=== PATIENT | male | born 1965 | race Caucasian/White ===

== ENCOUNTER 2020-02-16 22:42 | Emergency (ER) | payer OTHER, SELFPAY ==
[2020-02-16 22:46] VITALS: BP 117/76; PULSE 72; RESP 20; TEMP 37.1; O2SAT 100
--- NOTE | 2020-02-17 00:49 | ED.WOUNDLAC ---
HPI - Wound/Laceration General Chief Complaint: Wound/Laceration Stated Complaint: L middle finger infection? Time Seen by Provider: 02/17/20 00:49 History of Present Illness HPI narrative: He had a finger laceration sutured about 5 days ago. He was placed on prophylactic antibiotics at that time. He only took them for 2 days before they were damaged by water and he was not able to finish. Today he noted that the wound seemed to be more red and swollen than it had been. At the time of my evaluation he say that the swelling has decreased. He has mild discomfort. No fever or other systemic symptoms. Related Data Allergies Allergy/AdvReac Type Severity Reaction Status Date / Time mold Allergy Unknown Verified 05/17/17 00:37 Review of Systems Review of Systems: All systems reviewed & are unremarkable except as noted in HPI and below PMFSH Family History Family History Mother Family history of diabetes mellitus in first degree relative Family history of colonic diverticulitis Grandparent Family history of colonic diverticulitis Diabetes mellitus Social History Social History Alcohol intake: current Exam Const: General: healthy appearing, no acute distress and alert Orientation/consciousness: patient oriented x3 HENMT: Head: normal to inspection Cardio: Rate: regular rate Rhythm: regular rhythm Other: Brisk cappillary refill to left third finger Skin: Other: Healing laceration to left third finger. Mild redness Neuro: General: patient oriented x3, moves all extremities and no focal motor deficits Speech: normal speech Extrem: Other: Mild swelling to distal left third finger Psych: Appearance: grossly normal and well kempt Mental Status: mental status grossly normal Affect: normal affect Attitude: cooperative Course Vital Signs Vital signs: Vital Signs Temperature 37.1 C 02/16/20 22:46 Pulse Rate 72 02/16/20 22:46 Respiratory Rate 20 02/16/20 22:46 Blood Pressure 117/76 02/16/20 22:46 Pulse Oximetry 100 02/16/20 22:46 Temperature 36.6 C 02/17/20 01:41 Pulse Rate 78 02/17/20 01:41 Respiratory Rate 16 02/17/20 01:41 Blood Pressure 119/68 02/17/20 01:41 Pulse Oximetry 98 02/17/20 01:41 MDM - Wound/Laceration MDM Narrative Medical decision making narrative: Mild swelling and redness to left third finger. Could be within normal limits for healing. I will represcribe antibiotics. I believe that the sutures can stay in since there are no clear signs of infection at this time. Discharge Plan Discharge Clinical Impression: Laceration Patient Disposition: Home, Self-Care Condition: Stable Instructions: Antibiotic Form, Laceration (ED) Prescriptions: New cephalexin [Keflex] 500 mg capsule 500 mg PO Q8H Qty: 15 RF: 0 Follow-up/Referrals: UNKNOWN,DOCTOR [Primary Care Provider] - Discharge Date/Time: 02/17/20 01:42
[2020-02-17 01:41] VITALS: BP 119/68; PULSE 78; RESP 16; TEMP 36.6; O2SAT 98
[2020-02-17] MEDS: CEPHALEXIN 500 MG CAPSULE PO (01:41)
== END 2020-02-17 01:42 | disposition home or self-care (01) ==
PROVIDERS: Emergency Provider Emergency Medicine
DX: S61.213D Laceration without foreign body of left middle finger without damage to nail, subsequent encounter (principal); X58.XXXD Exposure to other specified factors, subsequent encounter
CPT/HCPCS: 99283; A9270

== ENCOUNTER 2020-04-09 16:31 | Outpatient (CLI) | payer OTHER, SELFPAY ==
--- NOTE | ~2020-04-09 | XR_ITS ---
EXAMINATION: XR pelvis 1-2V DATE: 04/09/2020 16:52 INDICATION: Pelvis injury and pain. TECHNIQUE: An anteroposterior view of the pelvis was obtained. COMPARISON: None. FINDINGS: Bone alignment is normal. No fracture. There is mild lumbar spondylosis. There is mild oste oarthritis of the hips. Partially visualized is heterotopic ossification in medial right thigh. IMPRESSION: 1. Mild osteoarthritis of the hips. Reviewed, dictated and finalized at location A. ERTIBLE POWER SHOVEL OPERATOR
== END 2020-04-09 16:32 | disposition home or self-care (01) ==
LOC: ANHIMG 16:39
PROVIDERS: PCP Internal Medicine Gastroenterology; Visit Provider Internal Medicine Gastroenterology
DX: S39.93XA Unspecified injury of pelvis, initial encounter (principal); X58.XXXA Exposure to other specified factors, initial encounter; M16.0 Bilateral primary osteoarthritis of hip
CPT/HCPCS: 72170

== ENCOUNTER 2022-11-20 21:37 | Emergency (ER) | payer BC, SELFPAY ==
--- NOTE | ~2022-11-20 | CT_ITS ---
Noncontrast CT scan of the lumbar spine CLINICAL HISTORY: Back pain radiating to lower extremities TECHNIQUE: Axial noncontrast imaging of the lumbar spine was performed. Sagittal and coronal reformat sanam images were constructed. Dose reduction technique was used on this scan by utilizing automated ex posure control and iterative reconstruction technique. The dose-length product (DLP) was 656.02 mGy-c m. FINDINGS: No fracture or subluxation identified in the lumbar spine. Vertebral bodies maintain normal height and alignment. There are extensive anterior osteophytes from L1 through L4. There are mild degenerative changes at L1-L2, L2-L3, L3-L4. At L1-L2, there is no disc bulge or herniation. No spinal canal stenosis or definite neural foraminal narrowing. At L2-L3, there is minimal disc bulge with mild to moderate facet arthropathy. No sima central canal stenosis identified. Probable mild right neural foraminal narrowing. At L3-L4, there is minimal disc bulge and mild facet arthropathy. No central canal stenosis or neural foraminal narrowing. At L4-L5, there is minimal disc bulge with moderate to advanced facet arthropathy. Possible minimal c entral canal stenosis. No definite neural foraminal narrowing. L5-S1, there is no disc bulge or herniation. No spinal canal stenosis. There is no definite neural fo raminal narrowing. Paravertebral soft tissues are unremarkable. Impression: Minimal degenerative spondylosis. No fracture or subluxation. Reviewed, dictated and finalized at [facility]. Impression: Minimal degenerative spondylosis. No fracture or subluxation.
[2022-11-20 21:51] VITALS: BP 116/71; PULSE 85; RESP 16; TEMP 36.9; O2SAT 100
[2022-11-20 23:02] VITALS: BP 123/77; PULSE 73; RESP 14; TEMP 36.6; O2SAT 100
[2022-11-20] MEDS: CYCLOBENZAPRINE HCL 5 MG TABLET PO (23:41)
[2022-11-21 00:48] VITALS: BP 114/68; PULSE 79; RESP 15; O2SAT 98
--- NOTE | 2022-11-21 01:22 | ED.BACK ---
HPI - Back Pain/Injury General Chief Complaint: Back Pain/Injury Stated Complaint: bilat leg pain, low back Time Seen by Provider: 11/20/22 23:07 Source: patient Mode of arrival: ambulatory Limitations: no limitations History of Present Illness HPI Narrative: Patient is a 57-year-old male who presents ED with report of muscle spasms in his lower back and upper thighs. Patient reports having pain and spasms in his bilateral upper posterior thighs/hamstrings and across his lower back for the past several days. Pain worse with movements, walking, coughing. He feels fine when he is laying still. Patient does report that he was recently hospitalized at [facility] after a traumatic head injury from a tree falling on him. He did not have any injury to his back at that time. He did not have imaging performed on his back at that time. He denies any injury since then but does note he has been sitting/laying frequently. Denies numbness, tingling, weakness of lower extremities, saddle anesthesia, incontinence of bowel or bladder. Denies any lower leg pain, calf pain, swelling of lower extremities. Denies abdominal pain, nausea, vomiting, fevers. Patient took Tylenol prior to arrival and does report some improvement of the pain. Related Data Allergies Allergy/AdvReac Type Severity Reaction Status Date / Time mold Allergy Unknown Verified 05/17/17 00:37 Review of Systems Review of Systems: CONSTITUTIONAL: Denies fever, chills, or sweats. CARDIOVASCULAR: Denies chest pain. RESPIRATORY: Denies dyspnea. GASTROINTESTINAL: Denies abdominal pain, nausea, vomiting, or diarrhea. GENITOURINARY: Denies incontinence, dysuria or hematuria. MUSCULOSKELETAL: See HPI. NEUROLOGIC: Denies tingling, saddle anesthesia, numbness, or weakness. All systems reviewed & are unremarkable except as noted in HPI and below PMFSH Family History Family History Mother Family history of diabetes mellitus in first degree relative Family history of colonic diverticulitis Grandparent Family history of colonic diverticulitis Diabetes mellitus Social History Social History Alcohol intake: current Exam Narrative: GENERAL: Well appearing, well-nourished, non-toxic, in no acute distress. HEAD: Normocephalic, atraumatic. Healing laceration with stitches in place to forehead. EENT: PERRLA/EOMI, conjunctiva clear. Old ecchymoses noted to nasal bridge and bilateral periorbital regions. NECK: Supple. No adenopathy, no masses. RESPIRATORY: Airway patent, respirations nonlabored. Clear to auscultation bilaterally, no rales, rhonchi, wheezing. CARDIOVASCULAR: Regular rate and rhythm without murmurs, rubs, or gallops. Peripheral pulses 2+ and equal bilaterally. MUSCULOSKELETAL: Moves all extremities. Strength/ROM intact without gross deformities. Full flexion/extension at hips bilaterally. No significant midline lumbar spinal tenderness. No bony deformities or palpable step-offs. No crepitus. Bilateral lumbar paraspinal musculature tenderness, worse on R side, reproducing pain. No appreciable tenderness in posterior thighs bilaterally. Sensation intact. No edema. SKIN: Warm, dry, normal color. No rashes. NEURO: A&O X3. Speech clear. Cranial nerves II-XII grossly intact. Steady gait. No ataxic movements. PSYCHIATRIC: Appropriate mood and affect. Normal interaction. Course Vital Signs Vital signs: Vital Signs Temperature 98.5 F 11/20/22 21:51 Pulse Rate 85 11/20/22 21:51 Respiratory Rate 16 11/20/22 21:51 Blood Pressure 116/71 11/20/22 21:51 Pulse Oximetry 100 11/20/22 21:51 Oxygen Delivery Room Air 11/20/22 21:51 Temperature 97.9 F 11/21/22 02:17 Pulse Rate 85 11/21/22 02:17 Respiratory Rate 14 11/21/22 02:17 Blood Pressure 129/70 11/21/22 02:17 Pulse Oximetry 98 11/21/22 02:17 Oxygen Delivery Room A
[2022-11-21 01:35] VITALS: BP 107/72; PULSE 74; RESP 13; O2SAT 99
[2022-11-21 02:17] VITALS: BP 129/70; PULSE 85; RESP 14; TEMP 36.6; O2SAT 98
== END 2022-11-21 02:18 | disposition home or self-care (01) ==
PROVIDERS: Emergency Provider Physician Assistant; PCP Physician Assistant
DX: M47.26 Other spondylosis with radiculopathy, lumbar region (principal); M62.830 Muscle spasm of back
CPT/HCPCS: 72131; 99284; A9270

== ENCOUNTER 2025-05-01 23:22 | Emergency (ER) | payer BC, SELFPAY ==
--- NOTE | ~2025-05-01 | XR_ITS ---
Examination: XR chest 1V portable Clinical History: productive cough Comparison: None Technique: Portable AP Findings: Heart size normal. Lungs clear. No acute bony abnormality. IMPRESSION: 1. No acute cardiopulmonary findings given portable technique. Reviewed, dictated and finalized at location R. D SERGEANT
--- OUTSIDE RECORDS SUMMARY | 2025-05-01 23:25 | XMS_ITS ---
Author Organization [facility] Address [address] [place] [address] Phone Care Team Providers Care Material Requisitioner Name Role Phone Yolanda Reyes APRN, SOM Primary Care Provider [phone] Vinh Vaughn MD Unavailable [phone] Ranjana Bhandari MD Unavailable [phone] [facility] Status:Identified (Enrolling) Start date:10/16/2024 Related program episode:[facility] (Active) Continued Care and Services Coordination
--- OUTSIDE RECORDS SUMMARY | 2025-05-01 23:25 | XMS_ITS ---
Author Organization [facility] Address [address] [place] [address] Phone Care Team Providers Care Graphic Production Artist Name Role Phone Yolanda Reyes APRN, SOM Primary Care Provider [phone] Vinh Vaughn MD Unavailable [phone] Ranjana Bhandari MD Unavailable [phone] [facility] Status:Enrolled (Active) Start date:10/16/2024 Enrollment date:10/16/2024 Related social drivers of health:Intimate Partner Violence, Social Connections, Alcohol Use, Financial Resource Strain, Depression, Stress, Physical Activity, Food Insecurity, Transportation Needs, Housing Stability, Utilities Related service episodes:Ed [facility] Service Episode (Enrolling) Continued Care and Services Coordination
--- OUTSIDE RECORDS SUMMARY | 2025-05-01 23:25 | XMS_ITS | Encounter Summary ---
Author Organization [facility] Address [address] [place] [address] Care Team Providers Care Statistical Methods Teacher Name Role Phone Tanmay Breen MD Primary Care Provider [phone] Encounter Details Date Type Department Care Team (Late st Contact Info) Description 11/11/2022 Ophth Exam [facility] - Ophthalmology [address] [place] [phone] Aryan Jorgensen MD [address] [place] [address] [place] [address] Social History Tobacco Use Types Packs/Day Years Used Date Smoking Tobacco: Never Smokeless Tobacco: Never Alcohol Use Standard Drinks/Week Comments Yes 0 (1 standard drink = 0.6 oz pur e alcohol) occass AUDIT-C Answer Date Recorded Q1: How often do you have a drink containing alcohol? Monthly or less 11/11/2022 Q2: How many drinks containi ng alcohol do you have on a typical day when you are drinking? Patient does not drink Q3: How often do you have si x or more drinks on one occasion? Never 11/11/2022 Overall Financial Resource Strain (CARDIA) Answe r Date Recorded How hard is it for you to pa y for the very basics like food, housing, medical care, and heating? Not hard at all 11/11/2022 [facility] [place] of Occupat ional Health - Occupational Stress Questionnaire Answer Date Recorded Do you feel stress - tense, restless, nervous, or anxious, or unable to sleep at night because your mind is troubled all the time - these days? Only a little 11/11/2022 Hunger Vital Sign Answer Date Recorded Within the past 12 months, y ou worried that your food would run out before you got the money to buy more. Sometimes true Within the past 12 months, t he food you bought just didn't last and you didn't have money to get more. Sometimes true 03/2023 PRAPARE - Transportation Answer Date Re corded In the past 12 months, has l ack of transportation kept you from medical appointments or from getting medications? No 11/02 In the past 12 months, has l ack of transportation kept you from meetings, work, or from getting things needed for daily living? No 11/11/2022 Housing Stability Vital Sign Answer Luis e Recorded In the last 12 months, was t here a time when you were not able to pay the mortgage or rent on time? No 11/11/2022 In the last 12 months, how many places have you lived? 1 11/11/2022 In the last 12 months, was t here a time when you did not have a steady place to sleep or slept in a skilled nursing (including now)? Yes 11/11/2022 Education Answer Date Recorded What is the highest level of school you have completed or the highest degree you have received? Bachelor's degree (e.g., BA, AB, BS) 11/11/2022 Sex and Gender Information Value Date Recorded Sex Assigned at Not on file Legal Sex Male 9:36 AM CDT Gender Identity Not on file Sexual Orientation Not on file documented as of this encounter Functional Status * Functional and Cognitive Status Question Answer Date of Assessment Author Is person deaf or have corine us hearing difficulty? No 11/11/2022 5:51 PM CDT Gus Oliveira R N Is person blind or have seri ous difficulty seeing? No 11/11/2022 5:51 PM CDT Gus Oliveira R N Does person have serious dif ficulty walking/climbing stairs? No 11/11/2022 5:51 PM CDT Ezio Oliveira, RN Does person have difficulty dressing/bathing? No 11/11/2022 5:51 PM CDT Gus Oliveira R N Does person have difficulty doing errands alone? No 11/11/2022 5:51 PM Gus Mcbride R N Does person have difficulty concentrating/remembering/making decisions? No 11/11/2022 5:51 PM Gus Mcbride R N * Question Answer Date of Assessment Author Q1: How often do you have a drink containing alcohol? Monthly or less 11/11/2022 5:50 PM Gus Mcbride R N Q2: How many drinks containing alcohol do you have on a typical day when you are drinking? Patient does not drink 11/11/2022 5:50 PM Gus Mcbride RN Q3: How often do you have six or more drinks on one occasion? Never 11/11/2022 5:50 PM Gus Mcbride R N * AUDIT-C Score Answer Date of Assessment Author 1 11/11/2022 5:50 PM Gus Mcbride RN * Is person deaf or have serious hearing difficulty? Answer Date of Assessment Author No 11/11/2022 5:51 PM Gus Mcbride RN * Is person blind or have serious difficulty seeing? Answer Date of Assessment Author No 11/11/2022 5:51 PM Gus Mcbride RN * Does person have serious difficulty walking/climbing stairs? Answer Date of Assessment Author No 11/11/2022 5:51 PM Gus Mcbride RN * Does person have difficulty dressing/bathing? Answer Date of Assessment Author No 11/11/2022 5:51 PM Gus Mcbride RN * Does person have difficulty doing errands alone? Answer Date of Assessment Author No 11/11/2022 5:51 PM Gus Mcbride RN documented as of this encounter Mental Status * Does person have difficulty concentrating/remembering/making decisions? Answer Entry Date Author No 11/11/2022 5:51 PM Gus Mcbride RN documented in this encounter Plan of Treatment Not on file documented as of this encounter Visit Diagnoses Not on filedocumented in this encounter Care Teams Statistical Methods Teacher Relationship Specialty Start Date End Date Tanmay Breen MD [address] [place] [id number] PCP - General Internal Medicine 09/22/14 02/27/23 documented as of this encounter
--- OUTSIDE RECORDS SUMMARY | 2025-05-01 23:25 | XMS_ITS | Encounter Summary ---
Author Organization [facility] Address [address] [place] [address] Care Team Providers Care Hat Stock Laminating Machine Operator Name Role Phone Tanmay Breen MD Primary Care Provider [phone] Encounter Details Date Type Department Care Team (Late st Contact Info) Description 11/11/2022 Ophth Exam [facility] - Ophthalmology [address] [place] [address] Shirley Wilson DO [address] [place] [address] Social History Tobacco Use Types Packs/Day Years [...] and heating? Not hard at all 11/11/2022 [employer] [place] of Occupat ional Health - Occupational Stress [...] place to sleep or slept in a alf (including now)? Yes 11/11/2022 Education Answer Date [...] doing errands alone? No 11/11/2022 5:51 PM CDT Gus Oliveira R N Does person have difficulty concentrating/remembering/making decisions? No 11/11/2022 5:51 PM PATRICIAT Gus Oliveira R N * Question Answer Date of Assessment Author Q1: How often do you have a drink containing alcohol? Monthly or less 11/11/2022 5:50 PM Gus Mcbride R N Q2: How many drinks containing alcohol do you have on a typical day when you are drinking? Patient does not drink 11/11/2022 5:50 PM PATRICIAT Gus Oliveira RN Q3: How often do you have [...] on filedocumented in this encounter Care Teams Hat Stock Laminating Machine Operator Relationship Specialty Start Date End Date Tanmay Breen MD [address] [place] [id number] PCP - General Internal Medicine 09/22/14 02/27/23 documented as of this encounter
--- OUTSIDE RECORDS SUMMARY | 2025-05-01 23:25 | XMS_ITS | Clinical Summary ---
Author Organization [facility] Address [address] [place] [address] Phone Care Team Providers Care Paper And Prints Restorer Name Role Phone Yolanda Reyes APRN, FIGURE MODEL Primary Care Provider [phone] Vinh Vaughn MD Unavailable [phone] Ranjana Bhandari MD Unavailable [phone] Allergies No known active allergies Medications montelukast (SINGULAIR) 10 MG Tablet Take 10 mg by mouth every evening. Active Active Problems No known active problems Social History Tobacco Use Types Packs/Day Years Used Date Smoking Tobacco: Never Smokeless Tobacco: Never Tobacco Cessation:Counseling Given: No Alcohol Use Standard Drinks/Week Comments Not Currently 0 (1 standard drink = 0.6 oz pur e alcohol) Sex and Gender Information Value Date Recorded Sex Assigned at Not on file Legal Sex Male 11:37 PM CDT Gender Identity Not on file Sexual Orientation Not on file Last Filed Vital Signs Vital Sign Reading Time Taken Comments Blood Pressure 120/70 12/30/2024 2:35 PM CDT Pulse 72 12/30/2024 2:35 PM CDT Temperature 36.4 C (97.5 F) 12/30/2024 2:35 PM CDT Respiratory Rate 14 12/30/2024 2:35 PM CDT Oxygen Saturation 97% 12/30/2024 2:35 PM CDT Inhaled Oxygen Concentration - - Weight 83.1 kg (183 lb 3.2 oz) 12/30/2024 2:35 P M CDT Height 188 cm (6' 2) 12/30/2024 2:35 PM CDT Body Mass Index 23.52 12/30/2024 2:35 PM CDT Plan of Treatment Upcoming Encounters Date Type Department Care Team (Late st Contact Info) Description 2025 3:00 PM CERAMICS TEACHER Office Visit [facility] - [place] [address] [place] [phone] Vinh Vaughn MD [address] [place] [address] 07/09/2025 2:45 PM CERAMICS TEACHER Office Visit [facility] - Ear, Nose & Throat - [place] [address] [facility] [place] [address] Ranjana Bhandari MD [address] [facility] [address] [address] Health Maintenance Due Date Last Done Comments Hepatitis C Virus (HCV) Screening 1965 Cologuard 2010 Colonoscopy 2010 Colorectal Cancer Screening 2010 Immunochemical Fecal Occult Blood 2010 Zoster Immunization (2 of 2) 10/15/2019 08/20/2019 PSA Discussion 2020 Pneumococcal Immunization (5 0+ years) (2 of 2 - PCV) 08/25/2020 08/26/2019 Influenza Immunization (#1) 2025 12/0 08/2021, 01/31/2016 SARS-COV-2 Immunization (4 - season) 2025 06/03/2021, 10/07/2020, 09/16/2020 Respiratory Syncytial Virus (RSV) Immunization (Adult) (1 - 1-dose 75+ series) 2040 Hepatitis B Immunization Completed 016, 06/11/2015, 03/16/2015 Pneumococcal Immunization Combined Discontinued 08/26/2019 TdaP Immunization Completed 11/10/2022, 02/09/2020, 03/16/2015 Human Papillomavirus (HPV) Immunization Aged Out No longer eligible based on patient's age to complete this topic Meningococcal Immunization (ACWY) Aged Out No longer eligible based on patient's age to complete this topic Rotavirus Immunization Aged Out No lo nger eligible based on patient's age to complete this topic [place] Care Teams Paper And Prints Restorer Relationship Specialty Start Date End Date Yolanda Reyes APRN, FIGURE MODEL [address] [place] [id number] PCP - General Advanced Practice Nurse 03/13/24 Vinh Vaughn MD [address] [place] [address] Consulting Physician Neurology 08/29/24 Ranjana Bhandari MD [address] [place] [address] Consulting Physician Otolaryngology 10/06/24
--- OUTSIDE RECORDS SUMMARY | 2025-05-01 23:25 | XMS_ITS | Clinical Summary ---
Author Organization [facility] Address [address] [place] [address] Care Team Providers Care Computer Mechanic Name Role Phone Gia Person PA-C Primary Care Provider [phone] Allergies No known active allergies Medications No known medications Social History Tobacco Use Types Packs/Day Years Used Date Smoking Tobacco: Never Smokeless Tobacco: Never Tobacco Cessation:Counseling Given: Not Answered Alcohol Use Standard Drinks/Week Comments Yes 0 (1 standard drink = 0.6 oz pur e alcohol) Socially AUDIT-C Answer Date Recorded Frequency of Alcohol Consumption Never 03/20/2018 Average Number of Drinks Not on file 018 Frequency of Binge Drinking Not on file 03/04 Sex and Gender Information Value Date Recorded Sex Assigned at Not on file Legal Sex Male 7:12 PM CDT Gender Identity Not on file Sexual Orientation Not on file Last Filed Vital Signs Vital Sign Reading Time Taken Comments Blood Pressure 127/89 05/03/2022 5:49 PM FOOD PROCESSING SCIENTIST Pulse 66 05/03/2022 5:49 PM FOOD PROCESSING SCIENTIST Temperature 36.4 C (97.5 F) 05/03/2022 5:49 PM FOOD PROCESSING SCIENTIST Respiratory Rate 16 05/03/2022 5:49 PM FOOD PROCESSING SCIENTIST Oxygen Saturation 100% 05/03/2022 5:49 PM FOOD PROCESSING SCIENTIST Inhaled Oxygen Concentration - - Weight 78 kg (172 lb) 05/03/2022 5:49 PM FOOD PROCESSING SCIENTIST Height 185.4 cm (6' 1) 05/03/2022 5:49 PM FOOD PROCESSING SCIENTIST Body Mass Index 22.69 05/03/2022 5:49 PM FOOD PROCESSING SCIENTIST Plan of Treatment Health Maintenance Due Date Last Done Comments Annual Physical 1968 Hepatitis C 1983 Zoster Vaccines (2 of 2) 10/15/2019 08/20/2019 Pneumococcal Vaccine: 50+ Years (2 of 2 - PCV) 08/25/2020 08/26/2019 Colorectal Cancer Screening Colonoscopy (10 Years) 06/05/2024 06/05/2014 COVID-19 Vaccine (4 - 2024-2 6 season) 2025 06/03/2021, 10/07/2020, 09/16/2020 Influenza Adult (#1) 2025 01/31/2016 DTaP, Tdap and Td Vaccines ( 3 - Td or Tdap) 11/10/2032 11/10/2022, 03/16/2015 Hepatitis A Vaccines Aged Out 01/31/2016, 03/16/2015 No longer eligible based on patient's age to complete this topic Meningococcal B Vaccine Aged Out No l onger eligible based on patient's age to complete this topic Meningococcal Vaccine Aged Out No lillian colin eligible based on patient's age to complete this topic RSV Immunizations Under 20 Months Aged Out No longer eligible b ased on patient's age to complete this topic Procedures Procedure Name Priority Date/Time Associated Diagnosis Comments COLONOSCOPY Routine 06/05/2014 12:00 AM FOOD PROCESSING SCIENTIST from Last 3 Months or Most Recently Relevant to Health Maintenance Results * Colonoscopy (06/05/2014 12:00 AM FOOD PROCESSING SCIENTIST) 06/05/2014 06/05/2014 Narrative [facility] TO EPIC CONVERSION - 06/05/2014 12:00 AM FOOD PROCESSING SCIENTIST Documented hx of procedure Procedure Note , Generic ConversionMD - 04/07/2018 Documented hx of procedure us Generic Conversion Md BURROWS GI PROCEDURE ORDERABLES Final Result [facility] TO EPIC CONVERSION from Last 3 Months or Most Recently Relevant to Health Maintenance Insurance [address] CROSS BLUE SHIELD MEDICAID C/O PROVIDER SERVICES JOCY SANCHEZ [id number] Care Teams Computer Mechanic Relationship Specialty Start Date End Date Gia Person PA-C PCP - General PHYSICIAN LABORER LABORATORY 07/06/22
--- OUTSIDE RECORDS SUMMARY | 2025-05-01 23:26 | XMS_ITS | Clinical Summary ---
Author Organization [facility] Address [address] [place] [address] Care Team Providers Care Snow Plow Operator Name Role Phone Unavailable Primary Care Provider Unavailabl e Source Comments [facility],non-owned Affiliates and Associated Physician Practices is amultiple site organization consisting of ambulatory clinics and hospital sitesin [place], [place], [place] and [place]. This disclosure is being madepursuant to the Care Everywhere program and may not contain all information available regarding this patient. Last updated 18.[facility] Allergies No known active allergies Medications * Be aware that medications may not be up to date on this document. Alwaysverify current medications with the patient. multivitamin daily (THERAGRAN) tablet Take 1 (one) tablet by mouth daily with food Active vitamin D, cholecalciferol, 2000 UNITS tablet Take 1 (one) tablet by mouth once daily Active Coenzyme Q10 (Q-10 CO-ENZYME PO) Active Active Problems Problem Noted Date Diagnosed Date Closed fracture of frontal bone 11/11/2022 Subarachnoid hemorrhage 11/11/2022 Intraparenchymal hematoma of brain 11/11/2022 Calvarial fracture 11/11/2022 Maxillary sinus fracture 11/11/2022 Nasal bone fracture 11/11/2022 Orbital wall fracture 11/11/2022 Fracture of left zygomatic arch 11/11/2022 Fracture of right zygomatic arch 11/11/2022 Forehead laceration 11/11/2022 Oewq-dhkosf-avlxfef fracture 11/11/2022 Dental injury 11/11/2022 Trauma 11/10/2022 Immunizations Immunization Administration Dates Next Due TDAP (7yrs+) 11/10/2022 Family History Medical History Relation Name Comments Colon Cancer after age 50 or unknown Maternal Grandfat her Colon Cancer after age 50 or unknown Maternal Grandmot her Relation Name Status Comments Maternal Grandfather Maternal Grandmother Social History Tobacco Use Types Packs/Day Years [...] and heating? Not hard at all 11/11/2022 [facility] of Occupat ional Health - Occupational Stress [...] place to sleep or slept in a custodial (including now)? Yes 11/11/2022 Education Answer Date [...] Sign Reading Time Taken Comments Blood Pressure 99/65 01/05/2023 11:23 AM CDT Pulse 85 01/05/2023 11:23 AM CDT Temperature 36.7 C (98 F) 01/05/2023 11:23 AM CDT Respiratory Rate 18 12/27/2022 11:44 AM CDT Oxygen Saturation 95% 01/05/2023 11:23 AM CDT Inhaled Oxygen Concentration - - Weight 85.3 kg (188 lb) 01/05/2023 11:23 AM CDT Height 188 cm (6' 2) 01/05/2023 11:23 AM CDT Body Mass Index 24.14 01/05/2023 11:23 AM CDT Plan of Treatment Health Maintenance Due Date Last Done Comments COLOGUARD (AGES 45-75) - COL ON CA SCREENING 1965 CT COLONOGRAPHY - COLON CA SCREENING 1965 FIT - COLON CA SCREENING 1965 FLEX SIG - COLON CA SCREENING 1965 HIV SCREENING 1980 HEPATITIS C SCREENING 06/28/1983 HEPATITIS B VACCINE (1 of 3 - 19+ 3-dose series) 1984 PNEUMOCOCCAL VACCINE 50+ (1 of 1 - PCV) 2015 ZOSTER VACCINE (1 of 2) 2015 DEPRESSION SCREENING 06/04/2024 COLON MONITORING 10/07/2024 10/07/2014, 10/07/2014 COLONOSCOPY - COLON CA SCREENING 10/07/2024 10/07/2014, 10/07/2014 Colorectal Cancer Screening 10/07/2024 COVID-19 VACCINE (2 - 2024-2 6 season) 2025 09/16/2020 INFLUENZA VACCINE (#1) 2025 LIPID TESTING 05/04/2027 05/04/2022 DTAP/TDAP/TD VACCINES (2 - T d or Tdap) 11/10/2032 11/10/2022 HIB VACCINE Aged Out No longer eligi ble based on patient's age to complete this topic HPV VACCINE Aged Out No longer eligi ble based on patient's age to complete this topic MENINGOCOCCAL (Group B) VACCINE SHARED DECISION-MAKING Aged Out No longer eligible based on patient's age to complete this topic MENINGOCOCCAL GROUPS A/C/Y/W VACCINE Aged Out No longer eligible b ased on patient's age to complete this topic Medical Devices Implanted Type Area Power Equipment Mechanics Instructor Device Identifier Shelf Expiration Date Model / Serial / Lot Plate 4 Hl Rgd Crnl .4mm X Matrixneuro Implanted:Qty: 1 on 11/16/2022 by Yuri Breen MD at [facility] Left: Face [employer] Maxillofacial 503.064 / / Screw 1.5mm 4mm Crnmxf Slfdrl Implanted:Qty: 16 on 11/16/2022 by Yuri Breen MD at [facility] Left: Face [employer] Maxillofacial .503.104 .01 / / Screw 1.55mm 2.65mm 4mm Crnmxf Er Implanted:Qty: 1 on 11/16/2022 by Yuri Breen MD at [facility] Left: Face [employer] Maxillofacial .503.114 .01 / / Plate 4 Hl Rgd Crnl 14x14x.4mm Bx Implanted:Qty: 3 on 11/16/2022 by Yuri Breen MD at [facility] Left: Face [employer] Maxillofacial .503.065 / / Procedures Procedure Name Priority Date/Time Associated Diagnosis Comments ENDOSCOPY, COLON, SCREENING Routine 10/07/2014 4:29 PM CDT from Last 3 Months or Most Recently Relevant to Health Maintenance Results * ENDOSCOPY, COLON, SCREENING (10/07/2014 4:29 PM CDT) Report Endoscopy POC __ _ Patient Name: Vince Dupont Procedure Date: 10/07/2014 4:29 PM Date of : 1965 Admit Type: Outpatient Age: 49 Gender: Male Attending MD: Jaylen Matthew MD __ _ Procedure: Colonoscopy Indications: Screening for colorectal malignant neoplasm, Family history of colon cancer Providers: Jaylen Matthew MD (Doctor), Denisa Milian, JOHN Referring MD: Allan Breen MD (Referring MD) Medicines: Monitored Anesthesia Care Complications: No immediate complications. __ _ Procedure: Pre-Anesthesia Assessment: - ASA Grade Assessment: II - A patient with mild systemic disease. - Airway Examination: Mallampati Class I (tonsillar pillars visualized). After I obtained informed consent, the scope was passed under direct vision. Throughout the procedure, the patient's blood pressure, pulse, and oxygen saturations were monitored continuously. The Colonoscope was introduced through the anus and advanced to the cecum, identified by appendiceal orifice and ileocecal valve. The colonoscopy was performed without difficulty. The patient tolerated the procedure well. The quality of the bowel preparation was adequate. Impression: - Diverticulosis. Findings: Diverticula were found in the colon. __ _ Recommendation: - Repeat colonoscopy in 5 years for screening purposes. Procedure Code(s): --- Professional --- 94463, Colonoscopy, flexible, proximal to splenic flexure; diagnostic, with or without collection of specimen(s) by brushing or washing, with or without colon decompression (separate procedure) --- Technical --- 43805, Colonoscopy, flexible, proximal to splenic flexure; diagnostic, with or without collection of specimen(s) by brushing or washing, with or without colon decompression (separate procedure) Diagnosis Code(s): --- Professional --- V76.51, Special screening for malignant neoplasms of colon V16.0, Family history of malignant neoplasm of gastrointestinal tract 562.10, Diverticulosis of colon (without mention of hemorrhage) --- Technical --- V76.51, Special screening for malignant neoplasms of colon V16.0, Family history of malignant neoplasm of gastrointestinal tract 562.10, Diverticulosis of colon (without mention of hemorrhage) CPT copyright 2013 [employer]. All rights reserved. The codes documented in this report are preliminary and upon insulation inspector review may be revised to meet current compliance requirements. Jaylen Matthew MD 10/07/2014 4:54 PM This report has been signed electronically. Number of Addenda: 0 Note Initiated On: 10/07/2014 4:29 PM [facility] ENDOSCOPY 10/07/2014 4:29 PM CDT us Jaylen Matthew MD GI PROCEDURE ORDERABLES Edited R esult - Final [facility] ENDOSCOPY from Last 3 Months or Most Recently Relevant to Health Maintenance Advance Directives * Full Code (Latest Code Status on File) Date Activated Date Inactivated Comments 11/10/2022 10:11 PM 11/16/2022 5:36 PM
[2025-05-01 23:29] VITALS: BP 117/81; PULSE 81; RESP 20; TEMP 36.7; O2SAT 95; O2SAT 96
[2025-05-01 23:31] VITALS: BP 106/87; O2SAT 95
--- NOTE | 2025-05-01 23:39 | ED_ITS ---
HPI - URI/Sore Throat General Chief Complaint: Upper Respiratory Infection Stated Complaint: im sick Time Seen by Provider: 05/01/25 23:27 History of Present Illness HPI Narrative: 59-year-old otherwise healthy male presenting with upper respiratory infection symptoms for 3 days including a sore throat and productive cough of clear mucus. Denies any smoking history, no COPD or asthma. No chest pain shortness a breath. Thinks it could be COVID or pneumonia. Was otherwise in his normal state of health. Has tried some gargle rinses but no medications for symptoms. Was denying any other symptoms such as nausea, vomiting, fever, chills, abdominal pain, diarrhea. No sick contacts. Related Data Allergies Allergy/AdvReac Type Severity Reaction Status Date / Time mold Allergy Unknown Verified 05/17/17 00:37 Review of Systems Review of Systems: As reviewed above in HPI All systems reviewed & are unremarkable except as noted in HPI and below PMFSH Family History Family History Mother Family history of diabetes mellitus in first degree relative Family history of colonic diverticulitis Grandparent Family history of colonic diverticulitis Diabetes mellitus Social History Social History Alcohol intake: current Exam Narrative: GENERAL: [Well-appearing, well-nourished, and in no acute distress.] HEAD: [Normocephalic, atraumatic.] EYES: [PERRLA and EOMI.] ENT: Nares are clear, posterior oropharynx erythema and some postnasal drip with cobblestoning seen. No lymphadenopathy. NECK: Supple. CHEST: Clear to auscultation, no respiratory distress or tachypnea. HEART: Regular rate and rhythm, regular pulses ABDOMEN: Nondistended EXTREMITIES: Normal range of motion. [No edema.] SKIN: Warm, dry, no rash. NEURO: [No focal deficits]. Alert and oriented [x3.] PSYCH: [Normal mood and affect.] Course Vital Signs Vital signs: Vital Signs Temperature 36.7 C 05/01/25 23:29 Pulse Rate 81 05/01/25 23:29 Respiratory Rate 20 05/01/25 23:29 Blood Pressure 117/81 11/28/25 23:29 Pulse Oximetry 95 05/01/25 23:29 Temperature 37.1 C 05/02/25 00:41 Pulse Rate 77 05/02/25 00:41 Respiratory Rate 20 05/02/25 00:41 Blood Pressure 115/73 05/02/25 00:41 Pulse Oximetry 97 05/02/25 00:41 MDM - URI/Sore Throat MDM Narrative Medical decision making narrative: 59-year-old otherwise healthy male presenting with upper respiratory infection symptoms for 3 days including a sore throat and productive cough of clear mucus. Denies any smoking history, no COPD or asthma. No chest pain shortness a breath. Thinks it could be COVID or pneumonia. Was otherwise in his normal sta te of health. Has tried some gargle rinses but no medications for symptoms. Was denying any other symptoms such as nausea, vomiting, fever, chills, abdominal pain, diarrhea. No sick contacts. Patient presents with the URI symptoms with postnasal drip and a productive cough of clear mucus. Afebrile, no tachypnea, tachycardia or hypoxia. Normal blood pressure. Otherwise been healthy. Has not taking medications for symptoms. Chest x-ray and viral panel swabs obtained. Will be discharged home with a combination of medication regimens for URI symptoms. X-ray does not show any solid consolidations, COVID flu RSV are negative. Patient sent home with symptom control medications for his upper respiratory infection. Medical Records Attestation: I reviewed the patient's medical records. Lab Data Attestation: I reviewed the patient's lab results. Labs: Lab Results 05/01/25 Range/Units 23:45 Influenza A (RT-PCR) Negative (Negative) Influenza B (RT-PCR) Negative (Negative) RSV (RT-PCR) Negative (Negative) SARS-CoV-2 RNA (RT-PCR) Negative (Negative) Imaging Data Attestation: I personally reviewed and interpreted this imaging study as follows: My impression: No obvious consolidations or pleural effusion. No evidence of pneumonia. Discharge Plan Discharge Clinical Impression: Upper respiratory infection Patient Disposition: Home Condition: Stable Instructions: Antibiotic Form, Upper Respiratory Infection (DC) Additional Instructions: X-ray shows no evidence of a pneumonia. Viral panel shows no COVID, flu or RSV. Symptoms consistent with an upper respiratory infection. Recommendations for decongestion and symptom controlling medications which we have prescribed. Follow-up with regular doctor. Return with any emergent concerns. Patient Language: [place] Prescriptions: New guaifenesin [Mucinex] 1,200 mg tablet extended release 12hr 1,200 mg PO Q12H Qty: 20 0RF benzonatate 200 mg capsule 200 mg PO TID PRN (Reason: cough) Qty: 20 0RF loratadine [Claritin] 10 mg tablet 10 mg PO DAILY Qty: 30 0RF No Action cephalexin [Keflex] 500 mg capsule 500 mg PO Q8H Qty: 15 0RF methocarbamol 750 mg tablet 750 mg PO TID PRN (Reason: spasms) Qty: 15 0RF Follow-up/Referrals: Raza,JOCY Nielsen [Non-Staff, Unknown] Time of Disposition: 00:39
[2025-05-01] MEDS: LORATADINE/PSEUDOEPHEDRINE (*CRX) 10/240 MG TABLET ER 24 HR 1 TAB PO (23:43)
[2025-05-02 00:01] VITALS: BP 105/74; O2SAT 96
--- OUTSIDE RECORDS SUMMARY | 2025-05-02 00:24 | XMS_ITS | Encounter Summary ---
Author Organization [facility] Address [address] [place] [address] Care Team Providers Care Process Manager Name Role Phone Tanmay Breen MD Primary Care Provider [phone] Encounter Details Date Type Department Care Team (Late st Contact Info) Description 11/11/2022 Ophth Exam [facility] - Ophthalmology [address] [place] [address] Shirley Wilson DO [address] [place] [address] Social History Tobacco Use Types [...] and heating? Not hard at all 11/11/2022 [facility] of Occupat ional Health - Occupational Stress [...] place to sleep or slept in a mcfp (including now)? Yes 11/11/2022 Education Answer Date [...] on filedocumented in this encounter Care Teams Process Manager Relationship Specialty Start Date End Date Tanmay Breen MD [address] [place] [id number] PCP - General Internal Medicine 09/22/14 02/27/23 documented as of this encounter
--- OUTSIDE RECORDS SUMMARY | 2025-05-02 00:24 | XMS_ITS | Clinical Summary ---
Author Organization [facility] Address [address] [place] [address] Phone Care Team Providers Care Corporate Director Of Pharmacy Name Role Phone Yolanda Reyes APRN, INTRAOPERATIVE NEURO TECH Primary Care Provider [phone] Vinh Vaughn MD Unavailable [phone] Ranjana Bhandari MD Unavailable [phone] Allergies No known active allergies Medications [...] st Contact Info) Description 2025 3:00 PM CLOTH LAMINATING SUPERVISOR [facility] [place] [address] [place] [phone] Vinh Vaughn MD [address] [place] [address] 07/09/2025 2:45 PM CLOTH LAMINATING SUPERVISOR Office Visit [facility] - Ear, Nose & Throat - [place] [address] [place] [address] Ranjana Bhandari MD [address] [facility] [address] [address] Health Maintenance Due Date Last [...] [place] Care Teams Corporate Director Of Pharmacy Relationship Specialty Start Date End Date Yolanda Reyes APRN, INTRAOPERATIVE NEURO TECH [address] [place] [id number] PCP - General Advanced Practice Nurse 03/13/24 Vinh Vaughn MD [address] [place] [address] Consulting Physician Neurology 08/29/24 Ranjana Bhandari MD [address] [place] [address] Consulting Physician Otolaryngology 10/06/24
--- OUTSIDE RECORDS SUMMARY | 2025-05-02 00:24 | XMS_ITS | Clinical Summary ---
Author Organization [facility] Address [address] [place] [address] Care Team Providers Care Bonding Machine Setter Name Role Phone Gia Person PA-C Primary Care Provider [phone] Allergies No known active allergies Medications No [...] Comments Blood Pressure 127/89 05/03/2022 5:49 PM MARKETING COMMUNICATIONS ASSOCIATE Pulse 66 05/03/2022 5:49 PM MARKETING COMMUNICATIONS ASSOCIATE Temperature 36.4 C (97.5 F) 05/03/2022 5:49 PM MARKETING COMMUNICATIONS ASSOCIATE Respiratory Rate 16 05/03/2022 5:49 PM MARKETING COMMUNICATIONS ASSOCIATE Oxygen Saturation 100% 05/03/2022 5:49 PM MARKETING COMMUNICATIONS ASSOCIATE Inhaled Oxygen Concentration - - Weight 78 kg (172 lb) 05/03/2022 5:49 PM MARKETING COMMUNICATIONS ASSOCIATE Height 185.4 cm (6' 1) 05/03/2022 5:49 PM MARKETING COMMUNICATIONS ASSOCIATE Body Mass Index 22.69 05/03/2022 5:49 PM MARKETING COMMUNICATIONS ASSOCIATE Plan of Treatment Health Maintenance Due Date [...] Diagnosis Comments COLONOSCOPY Routine 06/05/2014 12:00 AM MARKETING COMMUNICATIONS ASSOCIATE from Last 3 Months or Most Recently Relevant to Health Maintenance Results * Colonoscopy (06/05/2014 12:00 AM MARKETING COMMUNICATIONS ASSOCIATE) 06/05/2014 06/05/2014 Narrative [facility] TO EPIC CONVERSION - 06/05/2014 12:00 AM MARKETING COMMUNICATIONS ASSOCIATE Documented hx of procedure Procedure Note , Generic ConversionMD - 04/07/2018 Documented hx of procedure us Generic Conversion Md BURROWS GI PROCEDURE ORDERABLES Final Result [facility] TO EPIC CONVERSION from Last 3 Months or Most Recently Relevant to Health Maintenance Insurance [address] CROSS BLUE SHIELD MEDICAID C/O PROVIDER SERVICES JOCY SANCHEZ [id number] Care Teams Bonding Machine Setter Relationship Specialty Start Date End Date Gia Person PA-C PCP - General PHYSICIAN TRACTOR OPERATOR HELPER 07/06/22
--- OUTSIDE RECORDS SUMMARY | 2025-05-02 00:24 | XMS_ITS ---
Author Organization [facility] Address [address] [place] [address] Phone Care Team Providers Care Skinner Pelts Name Role Phone Yolanda Reyes APRN, SOM Primary Care Provider [phone] Vinh Vaughn MD Unavailable [phone] Ranjana Bhandari MD Unavailable [phone] [facility] Status:Identified (Enrolling) Start date:10/16/2024 Related program episode:[facility] (Active) Continued Care and Services Coordination
--- OUTSIDE RECORDS SUMMARY | 2025-05-02 00:24 | XMS_ITS ---
Author Organization [facility] Address [address] [place] [address] Phone Care Team Providers Care Wire Frame Maker Name Role Phone Yolanda Reyes APRN, SOM Primary Care Provider [phone] Vinh Vaughn MD Unavailable [phone] Ranjana Bhandari MD Unavailable [phone] [facility] Status:Enrolled (Active) Start date:10/16/2024 Enrollment date:10/16/2024 Related social drivers of health:Intimate Partner Violence, Social Connections, Alcohol Use, Financial Resource Strain, Depression, Stress, Physical Activity, Food Insecurity, Transportation Needs, Housing Stability, Utilities Related service episodes:[facility] Service Episode (Enrolling) Continued Care and Services Coordination
--- OUTSIDE RECORDS SUMMARY | 2025-05-02 00:24 | XMS_ITS | Encounter Summary ---
Author Organization [facility] Address [address] [place] [address] Care Team Providers Care Town Marshal Name Role Phone Tanmay Breen MD Primary Care Provider [phone] Encounter Details Date Type Department Care Team (Late st Contact Info) Description 11/11/2022 Ophth Exam [facility] - Ophthalmology [address] [place] [phone] Aryan Jorgensen MD [address] [place] [address] [place] [address] Social History Tobacco Use Types Packs/Day Years [...] and heating? Not hard at all 11/11/2022 [facility] of Occupat ional Health - Occupational Stress [...] place to sleep or slept in a fpc (including now)? Yes 11/11/2022 Education Answer Date [...] on filedocumented in this encounter Care Teams Town Marshal Relationship Specialty Start Date End Date Tanmay Breen MD [address] [place] [phone] PCP - General Internal Medicine 09/22/14 02/27/23 documented as of this encounter
--- OUTSIDE RECORDS SUMMARY | 2025-05-02 00:25 | XMS_ITS | Data Portability ---
[facility] [place] [facility] [address] [place] [address] Assessment Encounter Date Assessment Date Assessment LastModified by Organization Details LastModified Time 06/23/2022 06/23/2022 Pt had blood work last week by Dr. Anne, will drop off results. [email or web address] Not available 06/26/2022 10:15:25 10/18/2022 10/18/2022 Sections of the HPI, exam and assessment completed by JOCY Liu student and have been reviewed by me. I agree with the exam findings, assessment and plan except where specifically documented or amended. -Gia Person, [facility], PACarine [email or web address] Not available 10/19/2022 12:07:57 Plan of Treatment Reminders Order Date Submit Date Provider Last Modified By Organization Details Last Modified Time Details Appointments None recorded. Lab PSA, serum or plasma 2023 024 ANN MARIEBIJAL Dela Cruz, [address], [place], [address], 4 12:14:30 CMP, serum or plasma 2023 024 ANN MARIEBIJAL Naik, [address], [place], [address], 4 00:07:46 lipid panel, serum 2023 024 ANN MARIEBIJAL Naik, [address], [place], [address], 4 00:07:45 CBC w/ auto diff [address] [facility], [address], [place], [address], 4 00:07:46 TSH + free T4, serum [address] [facility], [address], [place], [address], 4 12:14:30 HbA1c (hemoglobin A1c), blood [address] [facility], [address], [place], [address], 4 12:14:31 urinalysis, dipstick 2022 023 sage In-Office Order, Internal Use Only DO Not Attach Compendium DO Not Attach Compendium, Do Not Delete/merge, [id number] 3 15:53:44 CMP, serum or plasma [address] [facility], [address], [place], [address], 3 20:09:41 lipid panel, serum [address] [facility], [address], [place], [address], 3 20:09:41 CBC w/ auto diff [address] [facility], [address], [place], [address], 3 20:09:42 PSA, serum or plasma [address] [facility], [address], [place], [address], 3 08:27:31 CMP, serum or plasma 2022 023 [facility] [address], [place], [address], 3 15:48:08 CBC w/ auto diff 2022 023 [facility], [address], [place], [address], 3 15:48:08 HbA1c (hemoglobin A1c), blood [address] [facility], [address] aMjor[address], [place], [address], 3 08:26:29 TSH + free T4, serum [address] [facility], [address], [place], [address], 3 08:26:28 lipid panel, serum 2022 023 [facility], [address], [place], [address], 3 15:48:08 Referral urologist referral 2023 024 [email or web address] Andrew Stover MD, [address], [place], [address], 4 08:30:41 gastroenter ologist referral 2023 024 sage Springer PA-C, [address] [facility], [place], [address], 4 08:18:23 physical therapist referral 2022 023 [facility], [address], [place], [address], 3 15:16:53 orthopedic surgeon referral 2020 021 [facility], [address], [place], [address], 1 16:09:53 Procedures None recorded. Surgeries None recorded. Imaging US, groin 2022 023 [facility] ([facility]), [address] [place], [address], 16:00:27 US, pelvis, complete 2022 023 [facility] ([facility]), [address] [place], [address], 3 09:11:25 Medication Orders None recorded. Patient TargetsNo targets recorded. Patient Instructions Encounter Date Encounter Id Patient Instructions Last Modified By Organization Details Last Modified Time 10/18/2022 [id number] I have reviewed the patient's medical record and the note from this clinical encounter. I was available by phone for the duration of the visit. I agree with the assessment and plan with the following addendum: [none]. MD jere [email or web address] Not available 10/23/2022 10:05:44 08/22/2023 [id number] low back pain: exercises [email or web address] Not available 08/22/2023 15:53:18 I have reviewed the patient's medical record and the note from this clinical encounter. I was available by phone for the duration of the visit. I agree with the assessment and plan with the following addendum: [none]. 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 Referral for Screening for malignant neoplasm of colon Referring Physician: Gia Person [facility], Encounter Date: 08/22/2023 Urologist Referral for Lower urinary tract symptoms Referring Physician: Gia Person [facility], Encounter Date: 08/22/2023 Results Created Date Observation Date Name Description Value Unit Range Abnormal Flag Note LastModifiedBy Organization Detail LastModifiedTime 07/11/1907/12/2022 TSH+F REE T4 TSH 1.100 uIU/m L 0.450- 4.500 Not Available [facility] ([facility]) [address] [place], [address], 07/12/2022 08:26:28 07/11/1907/12/2022 TSH+F REE T4 T4,free(dire ct) 1.69 NG/dL 0.82-1 .77 Not Available [facility] ([facility]) [address] [place], [address], 07/12/2022 08:26:28 07/11/1907/12/2022 HEMOG LOBIN A1C hemoglobin A1C 5.5 % 4.8-5. 6 Predi abete s: 5.7 - 6.4 Diabe shahram: >6.4 Glyce gadiel contr ol for adult s with diabe shahram: <7.0 Not Available [facility] ([facility]) [address] [place], [address], 07/12/2022 08:26:29 10/19/19 23 10/18/2022 PSA TOTAL (REFL EX TO FREE) reflex criteria Commen t The perce nt free PSA is perfo rmed on a refle x basis only when the total PSA is betwe en 4.0 and 10.0 ng/mL . Not Available [facility] ([facility]) [address] [place], [address], 10/19/2022 08:27:31 10/19/1910/19/2022 PSA TOTAL (REFL EX TO FREE) prostate specific Ag 0.5 NG/mL 0.0-4. 0 Deuce ECLIA metho dolog y. Accor raegan to the Ameri can Urolo gical Assoc iatio n, Serum PSA shoul d decre ase and remai n at undet ectab le level s after radic al prost atect josé miguel. The AUA defin es bioch emica l recur rence as an initi al PSA value 0.2 ng/mL or great er follo wed by a subse quent confi rmato ry PSA value 0.2 ng/mL or great er. Value s obtai brooklynn with diffe rent assay metho ds or kits canno t be used inter augustine eably . Resul ts canno t be inter prete d as absol [place] evide nce of the prese nce or absen ce of [facility] se. Not Available [facility] ([facility]) [address] [facility], [place], [address], 10/19/2022 08:27:31 10/19/1910/19/2022 LIPID PANEL WITH LDL/H DL RATIO cholesterol, total 198.8 mg/dL 140.0- 200.0 Not Available [facility] Department [address] [place], [address], 10/19/2022 20:09:41 10/19/19 23 10/19/2022 LIPID PANEL WITH LDL/H DL RATIO triglyceride s 49 mg/dL <=150 Not Available [facility] [place] Department [address] [place], [address], 10/19/2022 20:09:41 10/19/19 23 10/19/2022 LIPID PANEL WITH LDL/H DL RATIO HDL cholesterol 55.2 mg/dL 40.0-1 00.0 Not Available [facility] Department [address] [place], [address], 10/19/2022 20:09:41 10/19/19 23 10/19/2022 LIPID PANEL WITH LDL/H DL RATIO VLDL cholesterol corazon 9.80 mg/dL 5.00-4 0.00 Not Available [facility] Department [address] [place] [address], [address], 10/19/2022 20:09:41 10/19/19 23 10/19/2022 LIPID PANEL WITH LDL/H DL RATIO LDL chol calc ([email or web address] 134.6 mg/dL 0.0-99 .0 above high normal Not Available [facility] Department [address] [place] [address], [address], 10/19/2022 20:09:41 10/19/19 23 10/19/2022 LIPID PANEL WITH LDL/H DL RATIO LDL/HDL ratio 2.4 Not Available [facility] [place] Department [address] [place] [address], [address], 10/19/2022 20:09:41 10/19/19 23 10/19/2022 COMP. METAB OLIC PANEL (14) glucose 96 mg/dL 65-99 ANION GP 14.0 mmol/ L N OSMOL 277.0 mOsM/ L N REFER ENCE RANGE : 275.0 -301. 0 Not Available [facility] Department [address] [place] [address], [address], 10/19/2022 20:09:41 10/19/19 23 10/19/2022 COMP. METAB OLIC PANEL (14) BUN 21 mg/dL 8-26 Not Available [facility] Department [address] [place] [address], [address], 10/19/2022 20:09:41 10/19/19 23 10/19/2022 COMP. METAB OLIC PANEL (14) creatinine 1.05 mg/dL 0.50-1 .40 Not Available [facility] Department [address] [place] [address], [address], 10/19/2022 20:09:41 10/19/19 23 10/19/2022 COMP. METAB OLIC PANEL (14) eGFR 83 mL/mi n/1.7 3 >=60 Not Available [facility] Department [address] [place], [address], 10/19/2022 20:09:41 10/19/19 23 10/19/2022 COMP. METAB OLIC PANEL (14) BUN/creatini ne ratio 20.0 Not Available [facility] [place] Department [address] [place], [address], 10/19/2022 20:09:41 10/19/19 23 10/19/2022 COMP. METAB OLIC PANEL (14) sodium 137.0 mmol/ L 136.0- 144.0 Not Available [facility] Department [address] [place] [address], [address], 10/19/2022 20:09:41 10/19/19 23 10/19/2022 COMP. METAB OLIC PANEL (14) potassium 5.2 mmol/ L 3.5-5. 3 Not Available [facility] Department [address] [place] [address], [address], 10/19/2022 20:09:41 10/19/19 23 10/19/2022 COMP. METAB OLIC PANEL (14) chloride 101 mmol/ l 101-11 1 Not Available [facility] Department [address] [place] [address], [address], 10/19/2022 20:09:41 10/19/19 23 10/19/2022 COMP. METAB OLIC PANEL (14) carbon dioxide, total 27.4 mmol/ L 21.0-3 2.0 Not Available [facility] Department [address] [place] [address], [address], 10/19/2022 20:09:41 10/19/19 23 10/19/2022 COMP. METAB OLIC PANEL (14) calcium 9.7 mg/dL 8.2-10 .0 Not Available [facility] Department [address] [place] [address], [address], 10/19/2022 20:09:41 10/19/19 23 10/19/2022 COMP. METAB OLIC PANEL (14) protein, total 7.1 g/dL 6.7-8. 2 Not Available [facility] Department [address] [place], [address], 10/19/2022 20:09:41 10/19/19 23 10/19/2022 COMP. METAB OLIC PANEL (14) albumin 4.6 g/dL 3.5-5. 5 Not Available [facility] Department [address] [place] [address], [address], 10/19/2022 20:09:41 10/19/19 23 10/19/2022 COMP. METAB OLIC PANEL (14) globulin, total 2.5 g/dL 1.5-4. 5 Not Available [facility] Department [address] [place] [address], [address], 10/19/2022 20:09:41 10/19/19 23 10/19/2022 COMP. METAB OLIC PANEL (14) A/G ratio 2.0 Not Available [facility] Department [address] [place], [address], 10/19/2022 20:09:41 10/19/19 23 10/19/2022 COMP. METAB OLIC PANEL (14) bilirubin, total 1.2 mg/dL 0.0-1. 2 Not Available [facility] Department [address] [place] [address], [address], 10/19/2022 20:09:41 10/19/19 23 10/19/2022 COMP. METAB OLIC PANEL (14) alkaline phosphatase 64.5 IU/L 42.0-1 21.0 Not Available [facility] Department [address] [place], [address], 10/19/2022 20:09:41 10/19/19 23 10/19/2022 COMP. METAB OLIC PANEL (14) AST (SGOT) 19.1 U/L 10.0-4 2.0 Not Available [facility] Department [address] [place], [address], 10/19/2022 20:09:41 10/19/19 23 10/19/2022 COMP. METAB OLIC PANEL (14) ALT (SGPT) 16.1 U/L 10.0-6 0.0 Not Available [facility] Department [address] [place], [address], 10/19/2022 20:09:41 10/19/19 23 10/19/2022 CBC WITH DIFFE RENTI AL/PL ATELE T WBC 5.8 K/uL 3.4-10 .8 Not Available [facility] Department [address] [place], [address], 10/19/2022 20:09:42 10/19/19 23 10/19/2022 CBC WITH DIFFE RENTI AL/PL ATELE T RBC 5.0 M/uL 4.5-6. 3 Not Available [facility] Department [address] [place], [address], 10/19/2022 20:09:42 10/19/19 23 10/19/2022 CBC WITH DIFFE RENTI AL/PL ATELE T hemoglobin 15.4 g/dL 13.5-1 7.5 Not Available [facility] Department [address] [place], [address], 10/19/2022 20:09:42 10/19/19 23 10/19/2022 CBC WITH DIFFE RENTI AL/PL ATELE T hematocrit 46.8 % 40.0-5 2.0 Not Available [facility] Department [address] [place], [address], 10/19/2022 20:09:42 10/19/19 23 10/19/2022 CBC WITH DIFFE RENTI AL/PL ATELE T MCV 93 fL 80-95 Not Available [facility] Department [address] [place], [address], 10/19/2022 20:09:42 10/19/19 23 10/19/2022 CBC WITH DIFFE RENTI AL/PL ATELE T MCH 31 pg 27-32 Not Available [facility] Department [address] [place], [address], 10/19/2022 20:09:42 10/19/19 23 10/19/2022 CBC WITH DIFFE RENTI AL/PL ATELE T MCHC 33 g/dL 32-36 Not Available [facility] Department [address] [place], [address], 10/19/2022 20:09:42 10/19/19 23 10/19/2022 CBC WITH DIFFE RENTI AL/PL ATELE T RDW 13.2 % 11.5-1 4.5 Not Available [facility] Department [address] [place], [address], 10/19/2022 20:09:42 10/19/19 23 10/19/2022 CBC WITH DIFFE RENTI AL/PL ATELE T platelets 258 K/uL 155-37 9 MPV 10.7 FL 8.9-1 2.7 N Not Available [facility] Department [address] [place], [address], 10/19/2022 20:09:42 10/19/19 23 10/19/2022 CBC WITH DIFFE RENTI AL/PL ATELE T neutrophils 46.0 % 40.0-7 4.0 Not Available [facility] Department [address] [place], [address], 10/19/2022 20:09:42 10/19/19 23 10/19/2022 CBC WITH DIFFE RENTI AL/PL ATELE T lymphs 39.7 % 14.0-4 6.0 Not Available [facility] Department [address] [place], [address], 10/19/2022 20:09:42 10/19/19 23 10/19/2022 CBC WITH DIFFE RENTI AL/PL ATELE T monocytes 9.2 % 4.0-12 .0 Not Available [facility] Department [address] [place], [address], 10/19/2022 20:09:42 10/19/19 23 10/19/2022 CBC WITH DIFFE RENTI AL/PL ATELE T eos 3 % 0-5 Not Available [facility] Department [address] [place], [address], 10/19/2022 20:09:42 10/19/19 23 10/19/2022 CBC WITH DIFFE RENTI AL/PL ATELE T basos 1.6 % 0.0-1. 0 above high normal Not Available [facility] Department [address] [place], [address], 10/19/2022 20:09:42 10/19/19 23 10/19/2022 CBC WITH DIFFE RENTI AL/PL ATELE T neutrophils (absolute) 2.7 K/uL 1.4-7. 0 Not Available [facility] Department [address] [place], [address], 10/19/2022 20:09:42 10/19/19 23 10/19/2022 CBC WITH DIFFE RENTI AL/PL ATELE T lymphs (absolute) 2.3 K/uL 0.7-3. 1 Not Available [facility] Department [address] [place], [address], 10/19/2022 20:09:42 10/19/19 23 10/19/2022 CBC WITH DIFFE RENTI AL/PL ATELE T monocytes(ab solute) 0.5 K/uL 0.1-0. 9 Not Available [facility] Department [address] [place], [address], 10/19/2022 20:09:42 10/19/19 23 10/19/2022 CBC WITH DIFFE RENTI AL/PL ATELE T eos (absolute) 0.2 K/uL 0.0-0. 4 Not Available [facility] Department [address] [place], [address], 10/19/2022 20:09:42 10/19/19 23 10/19/2022 CBC WITH DIFFE RENTI AL/PL ATELE T baso (absolute) 0.1 K/uL 0.0-0. 3 Not Available [facility] Department [address] [place], [address], 10/19/2022 20:09:42 10/19/19 23 10/19/2022 CBC WITH DIFFE RENTI AL/PL ATELE T immature granulocytes 0.9 % Not Available [facility] Department [address] [place], [address], 10/19/2022 20:09:42 10/19/19 23 10/19/2022 CBC WITH DIFFE RENTI AL/PL ATELE T immature grans (abs) 0.1 K/uL Not Available [facility] Department [address] [place], [address], 10/19/2022 20:09:42 10/19/19 23 10/19/2022 CBC WITH DIFFE RENTI AL/PL ATELE T NRBC 0 % Not Available [facility] Department [address] [place], [address], 10/19/2022 20:09:42 10/19/19 23 10/18/2022 urina lysis , dipst ick Leukocytes Negati ve Not Available In-Office Order Internal Use Only DO Not Attach Compendium DO Not Attach Compendium, Do Not Delete/merge, 10/18/2022 15:44:12 10/19/1910/18/2022 urina lysis , dipst ick Nitrite negati ve Not Available In-Office Order Internal Use Only DO Not Attach Compendium DO Not Attach Compendium, Do Not Delete/merge, 10/18/2022 15:44:12 10/19/19 23 10/18/2022 urina lysis , dipst ick Urobilinogen .2 Not Available In-Of fice Order Internal Use Only DO Not Attach Compendium DO Not Attach Compendium, Do Not Delete/merge, [facility] 10/18/2022 15:44:12 10/19/19 23 10/18/2022 urina lysis , dipst ick Protein Negati ve Not Available In-Office Order Internal Use Only DO Not Attach Compendium DO Not Attach Compendium, Do Not Delete/merge, [facility] 10/18/2022 15:44:12 10/19/19 23 10/18/2022 urina lysis , dipst ick pH 6.0 Not Available In-Office Order Internal Use Only DO Not Attach Compendium DO Not Attach Compendium, Do Not Delete/merge, [facility] 10/18/2022 15:44:12 10/19/19 23 10/18/2022 urina lysis , dipst ick Blood Negati ve Not Available In-Office Order Internal Use Only DO Not Attach Compendium DO Not Attach Compendium, Do Not Delete/merge, [facility] 10/18/2022 15:44:12 10/19/19 23 10/18/2022 urina lysis , dipst ick Specific [place] 1.020 Not Available In-Off ice Order Internal Use Only DO Not Attach Compendium DO Not Attach Compendium, Do Not Delete/merge, [facility] 10/18/2022 15:44:12 10/19/19 23 10/18/2022 urina lysis , dipst ick Ketone Negati ve Not Available In-Office Order Internal Use Only DO Not Attach Compendium DO Not Attach Compendium, Do Not Delete/merge, [facility] 10/18/2022 15:44:12 10/19/19 23 10/18/2022 urina lysis , dipst ick Bilirubin Negati ve Not Available In-Office Order Internal Use Only DO Not Attach Compendium DO Not Attach Compendium, Do Not Delete/merge, [facility] 10/18/2022 15:44:12 10/19/19 23 10/18/2022 urina lysis , dipst ick Glucose Negati ve Not Available In-Office Order Internal Use Only DO Not Attach Compendium DO Not Attach Compendium, Do Not Delete/merge, 10/18/2022 15:44:12 10/19/1910/18/2022 urina lysis , dipst ick Appearance Clear Not Available In-Offi ce Order Internal Use Only DO Not Attach Compendium DO Not Attach Compendium, Do Not Delete/merge, 10/18/2022 15:44:12 10/19/1910/18/2022 urina lysis , dipst ick Color Yellow Not Available In-Office Order Internal Use Only DO Not Attach Compendium DO Not Attach Compendium, Do Not Delete/merge, 10/18/2022 15:44:12 08/22/19 24 08/22/2023 LIPID PANEL WITH LDL/H DL RATIO cholesterol, total 193 mg/dL 100-19 9 Not Available [facility] Department [address] [place] [address], [address], 08/23/2023 00:07:45 08/22/19 24 08/22/2023 LIPID PANEL WITH LDL/H DL RATIO triglyceride s 47 mg/dL 0-149 Not Available [facility] [place] Department [address] [place] [address], [address], 08/23/2023 00:07:45 08/22/19 24 08/22/2023 LIPID PANEL WITH LDL/H DL RATIO HDL cholesterol 58 mg/dL 40-999 Not Available [facility] Department [address] [place], [address], 08/23/2023 00:07:45 08/22/19 24 08/22/2023 LIPID PANEL WITH LDL/H DL RATIO VLDL cholesterol corazon 9 mg/dL 5-40 Not Available [facility] [place] Department [address] [place] [address], [address], 08/23/2023 00:07:45 08/22/19 24 08/22/2023 LIPID PANEL WITH LDL/H DL RATIO LDL chol calc ([email or web address] 133 mg/dL 0-99 above high normal Not Available [facility] Department [address] [place] [address], [address], 08/23/2023 00:07:45 08/22/19 24 08/22/2023 LIPID PANEL WITH LDL/H DL RATIO LDL/HDL ratio 2.3 0-3.6 Not Available [facility] [place] Department [address] [place], [address], 08/23/2023 00:07:45 08/22/19 24 08/22/2023 COMP. METAB OLIC PANEL (14) glucose 83 mg/dL 70-99 Not Available [facility] Department [address] [place] [address], [address], 08/23/2023 00:07:46 08/22/19 24 08/22/2023 COMP. METAB OLIC PANEL (14) BUN 16 mg/dL 6-24 Not Available [facility] Department [address] [place] [address], [address], 08/23/2023 00:07:46 08/22/19 24 08/22/2023 COMP. METAB OLIC PANEL (14) creatinine 1.11 mg/dL 0.76-1 .27 Not Available [facility] Department [address] [place], [address], 08/23/2023 00:07:46 08/22/19 24 08/22/2023 COMP. METAB OLIC PANEL (14) eGFR 77 >=60 Units for eGFR value s are mL/mi n/1.7 3 The eGFR Calcu latio n has not been valid ated for patie nts under the age of 18. If test resul ts are displ ayed for a patie nt under the age of 18, disre oscar that value . Not Available [facility] Department [address] [place], [address], 08/23/2023 00:07:46 08/22/19 24 08/22/2023 COMP. METAB OLIC PANEL (14) BUN/creatini ne ratio 15 9-20 Not Available [facility] [place] Department [address] [place], [address], 08/23/2023 00:07:46 08/22/19 24 08/22/2023 COMP. METAB OLIC PANEL (14) sodium 141 mmol/ L 134-14 4 Not Available [facility] Department [address] [place], [address], 08/23/2023 00:07:46 08/22/19 24 08/22/2023 COMP. METAB OLIC PANEL (14) potassium 4.8 mmol/ L 3.5-5. 2 Not Available [facility] Department [address] [place], [address], 08/23/2023 00:07:46 08/22/19 24 08/22/2023 COMP. METAB OLIC PANEL (14) chloride 102 mmol/ L 96-106 Not Available [facility] Department [address] [place], [address], 08/23/2023 00:07:46 08/22/19 24 08/22/2023 COMP. METAB OLIC PANEL (14) carbon dioxide, total 28 mmol/ L 20-29 Not Available [facility] Department [address] [place], [address], 08/23/2023 00:07:46 08/22/19 24 08/22/2023 COMP. METAB OLIC PANEL (14) calcium 10.0 mg/dL 8.7-10 .2 Not Available [facility] Department [address] [place], [address], 08/23/2023 00:07:46 08/22/19 24 08/22/2023 COMP. METAB OLIC PANEL (14) protein, total 7.1 g/dL 6.0-8. 5 Not Available [facility] Department [address] [place], [address], 08/23/2023 00:07:46 08/22/19 24 08/22/2023 COMP. METAB OLIC PANEL (14) albumin 4.6 g/dL 3.8-4. 9 Not Available [facility] Department [address] [place], [address], 08/23/2023 00:07:46 08/22/19 24 08/22/2023 COMP. METAB OLIC PANEL (14) globulin, total 2.5 g/dL 1.5-4. 5 Not Available [facility] Department [address] [place] [address], [address], 08/23/2023 00:07:46 08/22/19 24 08/22/2023 COMP. METAB OLIC PANEL (14) A/G ratio 2.0 1.2-2. 2 Not Available [facility] Department [address] [place] [address], [address], 08/23/2023 00:07:46 08/22/19 24 08/22/2023 COMP. METAB OLIC PANEL (14) bilirubin, total 1.3 mg/dL 0.0-1. 2 above high normal Not Available [facility] Department [address] [place] [address], [address], 08/23/2023 00:07:46 08/22/19 24 08/22/2023 COMP. METAB OLIC PANEL (14) alkaline phosphatase 63 IU/L 44-121 Not Available [facility] Department [address] [place] [address], [address], 08/23/2023 00:07:46 08/22/19 24 08/22/2023 COMP. METAB OLIC PANEL (14) AST (SGOT) 18 IU/L 0-40 Not Available [facility] Department [address] [place] [address], [address], 08/23/2023 00:07:46 08/22/19 24 08/22/2023 COMP. METAB OLIC PANEL (14) ALT (SGPT) 13 IU/L 0-44 Not Available [facility] Department [address] [place], [address], 08/23/2023 00:07:46 08/22/19 24 08/22/2023 CBC WITH DIFFE RENTI AL/PL ATELE T WBC 4.8 x10e3 /uL 3.4-10 .8 Not Available [facility] Department [address] [place], [address], 08/23/2023 00:07:46 08/22/19 24 08/22/2023 CBC WITH DIFFE RENTI AL/PL ATELE T RBC 5.08 x10e6 /uL 4.14-5 .80 Not Available [facility] Department [address] [place], [address], 08/23/2023 00:07:46 08/22/19 24 08/22/2023 CBC WITH DIFFE RENTI AL/PL ATELE T hemoglobin 15.6 g/dL 13.0-1 7.7 Not Available [facility] Department [address] [place], [address], 08/23/2023 00:07:46 08/22/19 24 08/22/2023 CBC WITH DIFFE RENTI AL/PL ATELE T hematocrit 48.2 % 37.5-5 1.0 Not Available [facility] Department [address] [place], [address], 08/23/2023 00:07:46 08/22/19 24 08/22/2023 CBC WITH DIFFE RENTI AL/PL ATELE T MCV 95 fL 79-97 Not Available [facility] Department [address] [place], [address], 08/23/2023 00:07:46 08/22/19 24 08/22/2023 CBC WITH DIFFE RENTI AL/PL ATELE T MCH 30.7 pg 26.6-3 3.0 Not Available [facility] Department [address] [place], [address], 08/23/2023 00:07:46 08/22/19 24 08/22/2023 CBC WITH DIFFE RENTI AL/PL ATELE T MCHC 32.4 g/dL 31.5-3 5.7 Not Available [facility] Department [address] [place], [address], 08/23/2023 00:07:46 08/22/19 24 08/22/2023 CBC WITH DIFFE RENTI AL/PL ATELE T RDW 12.9 % 11.5-1 4.5 Not Available [facility] Department [address] [place], [address], 08/23/2023 00:07:46 08/22/19 24 08/22/2023 CBC WITH DIFFE RENTI AL/PL ATELE T platelets 239 x10e3 /uL 150-45 0 Not Available [facility] Department [address] [place], [address], 08/23/2023 00:07:46 08/22/19 24 08/22/2023 CBC WITH DIFFE RENTI AL/PL ATELE T neutrophils 47 % notest b. Not Available [facility] Department [address] [place], [address], 08/23/2023 00:07:46 08/22/19 24 08/22/2023 CBC WITH DIFFE RENTI AL/PL ATELE T lymphs 41 % notest b. Not Available [facility] Department [address] [place], [address], 08/23/2023 00:07:46 08/22/19 24 08/22/2023 CBC WITH DIFFE RENTI AL/PL ATELE T monocytes 9 % notest b. Not Available [facility] Department [address] [place], [address], 08/23/2023 00:07:46 08/22/19 24 08/22/2023 CBC WITH DIFFE RENTI AL/PL ATELE T eos 3 % notest b. Not Available [facility] Department [address] [place], [address], 08/23/2023 00:07:46 08/22/19 24 08/22/2023 CBC WITH DIFFE RENTI AL/PL ATELE T basos 1 % notest b. Not Available [facility] Department [address] [place], [address], 08/23/2023 00:07:46 08/22/19 24 08/22/2023 CBC WITH DIFFE RENTI AL/PL ATELE T neutrophils (absolute) 2.2 x10e3 /uL 1.4-7. 0 Not Available [facility] Department [address] [place], [address], 08/23/2023 00:07:46 08/22/19 24 08/22/2023 CBC WITH DIFFE RENTI AL/PL ATELE T lymphs (absolute) 1.9 x10e3 /uL 0.7-3. 1 Not Available [facility] Department [address] [place], [address], 08/23/2023 00:07:46 08/22/19 24 08/22/2023 CBC WITH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
--- OUTSIDE RECORDS SUMMARY | 2025-05-02 00:25 | XMS_ITS | Clinical Summary ---
Author Organization [facility] [employer] Address [address] [place] [address] Care Team Providers Care Loans Consultant Name Role Phone Unavailable Primary Care Provider Unavailabl e Source Comments [facility],non-owned Affiliates and Associated Physician Practices is amultiple site organization consisting of ambulatory clinics and hospital sitesin [place], [place], [place] and [place]. This disclosure is being madepursuant to the Care Everywhere program and may not contain all information available regarding this patient. Last updated 18.[facility] [employer] Allergies No known active allergies Medications * [...] right zygomatic arch 11/11/2022 Forehead laceration 11/11/2022 Ctog-okgomx-txdvmap fracture 11/11/2022 Dental injury 11/11/2022 Trauma 11/10/2022 [...] and heating? Not hard at all 11/11/2022 [facility] - Occupational Stress [...] place to sleep or slept in a mcc (including now)? Yes 11/11/2022 Education Answer Date [...] this topic Medical Devices Implanted Type Area Contact Center Manager Device Identifier Shelf Expiration Date Model / Serial / Lot Plate 4 Hl Rgd Crnl .4mm X Matrixneuro Implanted:Qty: 1 on 11/16/2022 by Yuri Breen MD at [facility] Left: Face [employer]ill[employer] 503.064 / / Screw 1.5mm 4mm Crnmxf Slfdrl Implanted:Qty: 16 on 11/16/2022 by Yuri Breen MD at [facility] Left: Face [employer] Maxillofacial .503.104 .01 / / Screw 1.55mm 2.65mm 4mm Crnmxf Er Implanted:Qty: 1 on 11/16/2022 by Yuri Breen MD at [facility] Left: Face [employer] Maxillofacial .503.114 .01 / / Plate 4 Hl Rgd Crnl 14x14x.4mm Bx Implanted:Qty: 3 on 11/16/2022 by Yuri Breen MD at [facility] Left: Face [employer] Maxillofacial .503.065 / / Procedures Procedure Name [...] screening purposes. Procedure Code(s): --- Professional --- 96074, Colonoscopy, flexible, proximal to splenic flexure; diagnostic, with or without collection of specimen(s) by brushing or washing, with or without colon decompression (separate procedure) --- Technical --- 51627, Colonoscopy, flexible, proximal to splenic flexure; diagnostic, [...] (without mention of hemorrhage) CPT copyright 2013 [employer]. All rights reserved. The codes documented in this report are preliminary and upon cyber forensics analyst review may be revised to meet current compliance requirements. Jaylen Matthew MD 10/07/2014 4:54 PM This report has been signed electronically. Number of Addenda: 0 Note Initiated On: 10/07/2014 4:29 PM [facility] 10/07/2014 4:29 PM CDT us Jaylen Matthew MD GI PROCEDURE ORDERABLES Edited R esult - Final [facility] from Last 3 Months or Most Recently Relevant to Health Maintenance Advance Directives * Full Code (Latest Code Status on File) Date Activated Date Inactivated Comments 11/10/2022 10:11 PM 11/16/2022 5:36 PM
--- OUTSIDE RECORDS SUMMARY | 2025-05-02 00:25 | XMS_ITS | Data Portability ---
Author Organization [place] [facility], Main Office Address [address] [place] [address] Assessment Encounter Date Assessment Date Assessment LastModified by Organization Details LastModified Time 03/11/2024 03/11/2024 Flu shot: recommended at pharmacy COVID vaccines: recommended at pharmacy, has had 3 vaccines Tdap: patient unsure PSA: summer per pt Colonoscopy: cologuard 2022 negative mthilker Not available 03/11/2024 15:40:19 Plan of Treatment Reminders Order Date Submit Date Provider Last Modified By Organization Details Last Modified Time Details Appointments None recorded. Lab None recorded. Referral neurologist referral - Concerns with increased confusion. Please call patient to schedule an appointment . Thank you. 2023 024 [place] [facility], [address] [facility], [facility] [address], [address], 09:47:42 Procedures None recorded. Surgeries None recorded. Imaging MRI, brain, w/wo contrast - Please call pt to schedule 2023 024 [facility], [address] [facility] [address] [facility], [place], [address], 4 10:14:25 Medication Orders None recorded. Patient TargetsNo targets recorded. Patient InstructionsNo instructions recorded. Reason for Referral Neurologist Referral for His tory of traumatic brain injury Concerns with increased confusion. Please call patient to schedule an appointment. Thank you. Referring Physician: Yolanda Reyes, Family Medicine, Encounter Date: 03/11/2024 Results Created Date Observation Date Name Description Value Unit Range Abnormal Flag Note LastModifiedBy Organization Detail LastModifiedTime 03/25/20 24 03/21/2024 MRI, brain , w/wo contr ast No observ ation [facility] [address], [place], [address], 04/08/2024 08:44:21 Result Notes None recorded. Problems Name Problem SNOMED Code Status Onset Date Resolution Date Notes Provider Name and Address Organization Details Recorded Time Disorder of bursa of shoulder region 39675039 Active Not Available [employer] 3 08:47:07 Bilateral carpal tunnel syndrome 45245841887 367996 Active 2016 Not Available [employer] 3 08:47:06 Celluliti s 133171821 Completed 201608/09/2017 Not Available [employer] 3 08:47:07 Ganglion of wrist 966450680 Active 2016 Not Available [employer] 3 08:47:07 Finger joint stiff 999328219 Active 2016 Not Available [employer] 3 08:47:07 Hallux valgus AND bunion 453372953 Active 2016 Not Available [employer] 3 08:47:06 Chronic back pain 705161669 Active 2016 Not Available [facility] 3 08:47:07 Hyperbili rubinemia 85424545 Active 2016 Not Available [facility] 3 08:47:07 Hyperlipi demia 03401584 Active 2016 Not Available [facility] 3 08:47:07 Polyarthr opathy 38407008 Active 2017 Not Available [facility] 3 08:47:07 Degenerat ion of thoracolu mbar intervert ebral disc 16423868 Active 2017 Not Available [facility] 3 08:47:07 Hallux valgus 504397298 Active 2017 Not Available [employer] 3 08:47:06 Bunion 489438990 Active 2017 Not Available [facility] 3 08:47:07 Allergic bronchiti s 181767018 Active 2017 Not Available [facility] 3 08:47:07 Carpal tunnel syndrome 50015724 Active 2017 Not Available [facility] 3 08:47:07 Diarrhea 19975500 Active 2021 Not Available [facility] 3 08:47:07 Neuropath y 129630108 Active 2023 SANJUANA Clayton [address], [place], [address] , [employer] 4 15:23:07 Ganglion of wrist 059239953 Active 2023 SANJUANA Clayton [address], [place], [address] , [employer] 4 15:39:43 Carbohydr ate craving 162389753 Active 2023 SANJUANA Clayton [address], [place], [address] , [employer] 4 09:01:45 Impaired glucose tolerance 9081153 Active 2024 SANJUANA Clayton [address], [place], [address] , [employer] 5 11:03:19 Atypical facial pain 38719940 Active 2024 SANJUANA Clayton [address], [place], [address] , [employer] 5 09:33:36 Notes:Carpel tunnel Problem Notes None recorded. Procedures Surgical History Date Name Laterality Status Provider Name and Address Organization Details Recorded Time Colonoscopy completed Not Available [facility] 08/02/2022 08:44:04 Imaging Results None recorded. Procedure Notes None recorded. Medical Equipment None Reported. Allergies No known drug allergies Medications Name Sig Start Date Stop Date Status Note LastModified by Organization Details LastModified Time cyclobenzap rine 10 mg tablet Take 1 tablet as needed by oral route at bedtime for 30 days. active Not Available Not Available No t Available cetirizine 10 mg tablet Take 1 tablet every day by oral route as needed for 30 days. 05/31 completed Not Available Not Available Not Available peg-electro lyte solution 420 gram oral solution 03/11 completed Not Available Not Available Not Available amoxicillin 500 mg tablet 05/31 completed Not Available Not Available Not Available meloxicam 7.5 mg tablet TK 1 T PO QD PRN 05/31 completed With food. Not Available Not Available Not Available montelukast 10 mg tablet TAKE 1 TABLET BY MOUTH EVERY DAY 05/22 completed Not Available Not Available Not Available mupirocin 2 % topical ointment APPLY A SMALL AMOUNT TO THE AFFECTED AREA BY TOPICAL ROUTE 2 TIMES PER DAY active Not Available Not Available No t Available methylpredn isolone 4 mg tablets in a dose pack TK UTD 06/11 completed Not Available Not Available Not Available fluoxetine 20 mg capsule 04/04 completed Not Available Not Available Not Available naproxen 500 mg tablet TK 1 T PO BID PRN. 04/04 completed Not Available Not Available Not Available cyclobenzap rine 5 mg tablet TAKE 1 TABLET BY MOUTH EVERY DAY NEEDED 05/31 completed Not Available Not Available Not Available chlorhexidi ne gluconate 0.12 % mouthwash RINSE TWICE PER DAY 04/04 completed Not Available Not Available Not Available Golytely 236 gram-22.74 gram-6.74 gram-5.86 gram oral solution DIRECTED 03/11 completed Not Available Not Available Not Available Vitals Date Recorded Body weight Body mass index (BMI) Body height Body temperature Heart rate Respiratory rate Oxygen saturation Pain severity - 0-10 verbal numeric rating [Score] - Reported Systolic And Diastolic Provider Name and Address Organization Details Last Updated DateTime 4 38487.9 g 22.7 kg/m2 187.96 cm 97.3 [degF] 71 /min 20 /min 97 % 0 114/80 mm[Hg] Rosana Giraldo RN [place] [employer] [facility] 4 15:08:14 Date Recorded Body height Body mass index (BMI) Body weight Body temperature Heart rate Respiratory rate Oxygen saturation Pain severity - 0-10 verbal numeric rating [Score] - Reported Systolic And Diastolic Provider Name and Address Organization Details Last Updated DateTime 4 187.96 cm 24 kg/m2 83971.1 2 g 97.3 [degF] 73 /min 20 /min 97 % 0 100/70 mm[Hg] Rosana Giraldo RN [place] [facility] 4 14:30:54 Date Recorded Body mass index (BMI) Body height Oxygen saturation Heart rate Body temperature Body weight Systolic And Diastolic Provider Name and Address Organization Details Last Updated DateTime 2 23.8 kg/m2 187.96 cm 98 % 76 /min 97.2 [degF] 72346.5 9 g 104/70 mm[Hg] Not Available [facility] 3 08:46:07 Social History Question Answer Notes LastModified by Organization Details LastModified Time Tobacco Smoking Status Never Smoker Not Available [facility] 08/02/2022 08:43:52 Do You Have An Advance Directive? No Information not available 03/11/2024 What Is Your Level Of Caffeine Consumption? Moderate [id number] Information not available 08/02/2022 In The 14 Days Before Symptom Onset, Have You Had Close Contact With A Laboratory-conf irmed COVID-19 While That Case Was Ill? No Information not available 03/11/2024 In The 14 Days Before Symptom Onset, Have You Had Close Contact With A Person Who Is Under Investigation For COVID-19 While That Person Was Ill? No Information not available 03/11/2024 What Type Of Diet Are You Following? REGULAR [id number] Information not available 08/02/2022 Have There Been Any Changes To Your Family Or Social Situation? 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 Yes Information not available 03/11/2024 Where Do You Live? SingleLevelHouse Information not available 03/11/2024 Do You Have A Medical Power Of Water Team Leader? No Information not available 03/11/2024 What Was The Date Of Your Most Recent Tobacco Screening? 05/31/2022 [id number] Information not available 08/02/2022 How Many Children Do You Have? 3 Information not available 03/11/2024 Do You Have Any Pets? Yes Information not available 03/11/2024 What Is Your Relationship Status? [id number].846 [id number] Information not available 08/02/2022 Do You Use Your Seat Belt Or Car Seat Routinely? No Sometimes Information not available 03/11/2024 Do You Have Smoke And Carbon Monoxide Detectors In Your Home? Yes Information not available 03/11/2024 Are You Passively Exposed To Smoke? No Information not available 03/11/2024 Are There Any Smokers In Your House? No Information not available 03/11/2024 Do You Participate In Social Media? No Information not available 03/11/2024 Do You Use Sunscreen Routinely? Yes Information not available 03/11/2024 Have You Recently Traveled Abroad? No [id number] Information not available 08/02/2022 Are You Currently In School? Yes Information not available 03/11/2024 Sex: Male Functional Status Question Answer Note LastModified by Organizat ion Details LastModified Time What is your level of alcohol consumption? Occasional [id number] Information not available 08/02/2022 Are you currently employed? 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 [id number] Information not available 03/11/2024 Family History Relationship Description Onset Age of this Age Resolved Age Notes LastModified by Organization Details LastModified Time Maternal Uncle Diabetes mellitus [id number] Not available 08/02/2022 08:44:06 Notes:colon issues- grandfat her Medical History Condition Response OTHER # 1 NEUROPATHY Y Past Encounters Encounter ID Performer Location Encounter Start Date Encounter Closed Date Diagnosis/Indication Diagnosis SNOMED-CT Code Diagnosis ICD10 Code Diagnosis IMO Codes Diagnosis Note [id number] _ATHN_MIGR ATION_1 _ATHENA_M IGRATION_ DEFAULT_1 _1 , 05/31/2022 00:00:00 05/31/2022 16:57:49 [id number] Antwon Quiroga MD [facility]_[address] [address] 03/11/2024 14:55:18 03/11/2024 15:57:28 History of traumatic brain injury 8434359320 9100 Z87.820 [facility] diagnosis of memory loss Neuropathy 547648095 G62 .9 Has order for EMG Ganglion of wrist 20280903 009 M67.439 Patient states has been there many years, no interest in interventi on or referral [id number] Antwon Quiroga MD [address] [address] 05/22/2024 14:11:36 05/22/2024 15:07:13 Neuropathy 275933059 G62.9 Has order for EMG, does not want to do now.Offere d gabapentin , pt declinesOf fered NSAIDs, pt declinesRe commended OTC ibuprofen and FU with neurology scheduled for 08/2024 Health Concerns Section Related Observation LastModified by Organization Detai ls LastModified Time None Recorded Concern Status LastModified by Organization Details LastModified Time None Recorded Advance Directives Directive N: Payers Insurance Date Sequence Insurance Name Policy Number Policy Lynn Covered Member ID Lynn Member ID Guarantor Name 06/10/2024 2 [place] [employer] [place] [employer] Laurie Walkerkashmir [id number] Laurie Junetom 06/10/2024 1 [facility] PRIOR TO 01/02/2025 (MEDICAID REPLACEMENT - HMO) [id number] Laurie Venegas Cresencio [id number] Laurie Venegas Cresencio Notes Date Note Type Note Provider Name and Address Organization Details Recorded Time 03/11/2024 text/html Laurie uDpont is a 58 year old male patient here today to establish care. His last doctor was Dr. Yuri Aldridge, [facility]. States he had annual labs 1 month ago He expresses concerns with pain in his right lower back that would bring him to his knees states it has mostly resolved Neuropathy and carpal tunnel. Has not been diagnosed with diabetes, but notes neuropathy is worse when he consumes a lot of sugars. States at night time he will frequently get cold and clammy. He admits that he will occasionally sweat but not through clothes. Was hit on the head with a large log (12/2022), had a head surgery after this. Is not followed by neurology Has some concerns with memory loss and not being as sharp as he once was States found calcium build up in carotid arteries on brain imaging. States recent lipid panel was normal Patient believes he has asthma. States he has severe osteoarthritis but it isn't bothering him right now. Patient states he was recently diagnosed as Neurodivergent by Dr. Templeton in [facility]. States he is going to school for his Master's in Biology Flu shot: recommended at pharmacyCOVID vaccines: recommended at pharmacy, has had 3 vaccinesTdap: patient unsurePSA: summer per ptColonoscopy: cologuard 2022 negative SANJUANA Clayton [address], [place], [address], [place] [facility] [employer] 03/11/2024 15:40:39 05/22/2024 text/html Laurie Dupont is a 58 year old male patient here today for multiple concerns. He does have a history of a TBI. Recent MRI shows no changes since accident. He states his neuropathy is getting worse. He notes a lack of physical activty and worse diet. Feels that this is related to his neuropathy. He also feels that he has symptoms of diabetes. A1C on 04/08/24 was 5.5, he states he feels his neuropathy symptoms are worse when he eats more sugar. He states he is having frequent episodes of temperature irregularities at night. He states when this occurs he will have tingling in his face, hands, and legs. He will feel burning in his limbs. He admits to cold sweats. Concerns with some left hip pain following a work injury (04/03/2020). He did have 6 weeks of physical therapy but noted he does still have some pain. SANJUANA Clayton [address], [place], [address], [place] [facility] 05/22/2024 15:04:19
[2025-05-02 00:34] LABS: Influenza A QL RT-PCR Negative (Negative); Influenza B QL RT-PCR Negative (Negative); RSV RNA, RT-PCR Negative (Negative); SARS-CoV-2 RNA PCR Negative (Negative)
[2025-05-02 00:41] VITALS: BP 115/73; PULSE 77; RESP 20; TEMP 37.1; O2SAT 97
== END 2025-05-02 00:42 | disposition home or self-care (01) ==
PROVIDERS: Emergency Provider Student in an Organized Health Care Education/Training Program; PCP Family Medicine
DX: J06.9 Acute upper respiratory infection, unspecified (principal); Z20.822 Contact with and (suspected) exposure to COVID-19
CPT/HCPCS: 71045; 87637; 99283; A9270